=== PATIENT | female | born 1935 | race Caucasian/White ===

== ENCOUNTER 2019-07-22 20:07 | Observation (INO) ==
[2019-07-22 20:58] LABS: Basophils # 0.1 10*3/uL (0.0-0.2); Basophils % 0.7 % (0.0-0.8); Eosinophils # 0.2 10*3/uL (0.0-0.87); Eosinophils % 2.1 % (0.00-10.9); Hematocrit 46.7 VOL% (35.7-47.0); Hemoglobin 15.2 GM/DL (12.0-16.0); Immature Granulocytes % 0.4 %; Immature Granulocytes Absolute 0.03 #; Lymphocytes # 2.2 10*3/uL (1.4-4.0); Lymphocytes % 31.8 % (21.3-54.2); Mean Corpuscular HGB Conc 32.5 GM/DL (32-36); Mean Corpuscular Volume 96.3 FL (87-102); Mean Platelet Volume 9.7 FL (9.6-12.0); Monocytes % 11.3 % (1.7-12.7); Neutrophils % 53.7 % (38.7-73.9); Platelet Count 240 T/CUMM (130-400); Red Blood Count 4.85 MC/CUMM (3.8-5.5); Red Cell Distribution Width 12.9 % (9.3-17.3)
[2019-07-22 21:19] LABS: Apearance,Urine CLEAR (Clear); Bilirubin,Urine Negative (Negative); Blood, Urine Negative (Negative); Glucose,Urine (UA) Negative (Negative); Hyaline Casts,Urine 6 /LPF (0-3); Ketones,Urine 5 mg/dL (Negative); Mucus,Urine Moderate /LPF (Occasional); Nitrite,Urine Negative (Negative); Protein,Urine Negative; RBC,Urine 1 /HPF (0-4); Squamous Epithelial Cell,Urine Occasional /HPF (0-10); Urine Color Yellow (Yellow); Urine Specific Gravity 1.021 (1.001-1.035); Urine Urobilinogen < 2.0 EU/DL (0.2-1.0); WBC,Urine 1 /HPF (0-6)
[2019-07-22 21:20] LABS: INR 0.9; PT Patient Result 10.2 SECS (9.6-12.2); Partial Thromboplastin Time 25.4 SECS (20.8-36.0)
[2019-07-22 21:22] LABS: Alanine Aminotransferase 18 U/L (13-56); Albumin 3.4 G/DL (3.4-5.0); Alkaline Phosphatase 73 U/L (45-117); Aspartate Amino Transferase 17 U/L (0-37); Blood Urea Nitrogen 22 MG/DL (7-18); Calcium 9.2 MG/DL (8.5-10.1); Estimated Glom Filtration Rate 45 ML/MIN; Glucose 95 MG/DL (74-106); Osmolality,Calculated 279.5 MOS/KG (273-304); Troponin I < 0.015 NG/ML (0.00-0.045)
[2019-07-22 22:02] LABS: Barbiturates Screen,Urine Negative (Negative); Benzodiazepines Screen,Urine Negative (Negative); Cannabinoid Screen,Urine Negative (Negative); Opiate Screen,Urine Negative (Negative); Phencyclidine Screen,Urine Negative (Negative)
[2019-07-22] MEDS ORDERED: ZALEPLON 5 MG CAPSULE PO PRN (23:33)
[2019-07-22] MEDS ORDERED: guaiFENesin/DM ER 600-30 MG TABLET PO PRN (23:33)
[2019-07-22] MEDS ORDERED: DOCUSATE SODIUM 100 MG CAPSULE PO PRN (23:33)
[2019-07-22] MEDS ORDERED: diphenhydrAMINE CAP 25 MG CAPSULE PO PRN (23:33)
[2019-07-22] MEDS ORDERED: ACETAMINOPHEN 325 MG TABLET PO PRN (23:33)
[2019-07-22] MEDS ORDERED: PROMETHAZINE 25 MG TABLET PO PRN (23:33)
[2019-07-22] MEDS ORDERED: MORPHINE 4 MG/1 ML VIAL IV PRN (23:33)
[2019-07-23] MEDS ORDERED: hydrALAZINE 20 MG/1 ML VIAL IV PRN (00:06)
[2019-07-23] MEDS ORDERED: ALBUTEROL 2.5 MG/3 ML NEB RESP TX PRN (00:07)
[2019-07-23] MEDS: ALBUTEROL/IPRATROPIUM 3 ML NEB RESP TX SCH ×3 (02:06→12:15)
[2019-07-23 05:55] LABS: Basophils # 0.1 10*3/uL (0.0-0.2); Basophils % 1.1 % (0.0-0.8); Eosinophils # 0.2 10*3/uL (0.0-0.87); Eosinophils % 2.6 % (0.00-10.9); Hematocrit 42.5 VOL% (35.7-47.0); Hemoglobin 13.7 GM/DL (12.0-16.0); Immature Granulocytes % 0.3 %; Immature Granulocytes Absolute 0.02 #; Lymphocytes # 1.8 10*3/uL (1.4-4.0); Lymphocytes % 29.5 % (21.3-54.2); Mean Corpuscular HGB Conc 32.2 GM/DL (32-36); Mean Corpuscular Volume 95.7 FL (87-102); Mean Platelet Volume 10.7 FL (9.6-12.0); Monocytes % 9.6 % (1.7-12.7); Neutrophils % 56.9 % (38.7-73.9); Platelet Count 198 T/CUMM (130-400); Red Blood Count 4.44 MC/CUMM (3.8-5.5); Red Cell Distribution Width 12.6 % (9.3-17.3); White Blood Count 6.1 T/CUMM (4-12)
[2019-07-23 06:16] LABS: Calcium 8.9 MG/DL (8.5-10.1); Osmolality,Calculated 277.5 MOS/KG (273-304)
[2019-07-23 06:21] LABS: Risk Ratio 4.37; VLDL CHOLESTEROL 43.8 MG/DL
[2019-07-23] MEDS ORDERED: ENOXAPARIN 40 MG/0.4 ML SYRINGE SUBCUT SCH (08:00)
[2019-07-23] MEDS ORDERED: ASPIRIN 325 MG TABLET PO SCH (09:00)
[2019-07-23 16:05] VITALS: BP 136/67
[2019-07-23] MEDS ORDERED: ROSUVASTATIN 20 MG TABLET PO SCH (21:00)
[2019-07-23] MEDS ORDERED: NON-FORMULARY MEDICATION (Glycopyrrolate-Formoterol [Bevespi Aerosphere] 2 PUFF) INH SCH (21:00)
== END 2019-07-23 15:37 | disposition home health service (06) ==
LOC: N.EDINP 20:07 → N.ED 20:07 → N.4E 07-23 00:19
PROVIDERS: ADMIT Internal Medicine; ATTEND Internal Medicine